=== PATIENT | female | born 1955 | race Caucasian/White ===

== ENCOUNTER 2019-09-11 15:42 | Inpatient (IN) | payer BC ==
[~2019-09-11] VITALS: Ht 152.4 cm; Wt 77.6 kg
[2019-09-11 15:42] VITALS: BP_SYST 95
--- NOTE | 2019-09-11 15:42 | NUR ---
BROUGHT IN BY [facility], PLACED IN BED #1 AND TRIAGED. REPORT GIVEN TO YAMILE
--- NOTE | 2019-09-11 15:45 | NUR ---
MD SALOMON AT BEDSIDE ASSESSING PT.
[2019-09-11] MEDS ORDERED: NACL 0.9% 1,000 ML IV ONE ×2 (15:47→23:00)
--- NOTE | 2019-09-11 16:00 | NUR ---
RN ASSESSING PT. PT HAD HYPOTENSIVE EPISODE. PT BROUGHT IN BY EMS. PT IS ALERT ORIENTED AND NOW STABLE. B/P UP
[2019-09-11 16:25] LABS: BASOPHILS # (AUTO) 0.1 K/uL (0.0-0.2); BASOPHILS % (AUTO) 0.4 % (0.0-2.0); EOSINOPHILS # (AUTO) 0.2 K/uL (0.0-0.4); EOSINOPHILS % (AUTO) 1.3 % (0.0-4.0); HEMATOCRIT 28.9 % (36-48); HEMOGLOBIN 9.1 g/dL (12.0-16.0); LYMPHOCYTES # (AUTO) 2.3 K/uL (1.0-5.5); LYMPHOCYTES % (AUTO) 13.1 % (20.5-51.5); MEAN CORPUSCULAR HEMOGLOBIN 29 pg (27-31); MEAN CORPUSCULAR HGB CONC 32 % (32-36); MEAN CORPUSCULAR VOLUME 91 fL (79.0-98.0); MONOCYTES # (AUTO) 1.6 K/uL (0.0-1.0); MONOCYTES % (AUTO) 9.3 % (1.7-9.3); NEUTROPHILS # (AUTO) 13.4 K/uL (1.8-7.7); NEUTROPHILS % (AUTO) 75.9 % (40.0-70.0); PLATELET COUNT (AUTO) 482 K/uL (130-430); RED BLOOD CELL COUNT(AUTO) 3.18 MIL/uL (4.2-6.2); RED CELL DISTRIBUTION WIDTH 15.5 % (9.0-15.0); WHITE BLOOD COUNT (AUTO) 17.6 K/uL (4.8-10.8)
[2019-09-11 16:35] LABS: CALCIUM 7.4 mg/dL (8.4-11.0); CREATININE 5.51 mg/dL (0.55-1.30); POTASSIUM 4.3 mmol/L (3.5-5.1)
--- NOTE | 2019-09-11 16:50 | NUR ---
FLU SWAB SENT TO LAB
[2019-09-11 17:00] LABS: ALBUMIN 3.2 g/dL (3.4-4.8); TOTAL BILIRUBIN 0.3 mg/dL (0.0-1.0)
[2019-09-11 17:24] LABS: CKMB RELATIVE INDEX 1.9 (0.0-2.9); CREATINE KINASE MB 18.9 ng/mL (0-3.6)
--- NOTE | 2019-09-11 17:42 | NUR ---
PT CONTINUES IN IV FLUIDS 1ST LITER.
[2019-09-11] MEDS ORDERED: cefTRIAXone 1 GM IVPB PREMIX 50 ML IV ONE (18:30)
--- NOTE | 2019-09-11 18:34 | NUR ---
ORDERS RECEIVED BY MD CAZARES. ADMIT TO TELE
[2019-09-11] MEDS ORDERED: LISI1TAB32 PO (18:54)
[2019-09-11] MEDS ORDERED: CHOL200041 PO (18:54)
[2019-09-11] MEDS ORDERED: SIMV20TA2 PO (18:54)
[2019-09-11] MEDS ORDERED: LORA-259 PO (18:54)
[2019-09-11 19:00] LABS: BLOOD, URINE NEGATIVE (NEGATIVE); CLARITY/URINE SL CLOUDY (CLEAR); COLOR,URINE YELLOW (YELLOW); GLUCOSE,URINE NEGATIVE (NEGATIVE); KETONES,URINE NEGATIVE (NEGATIVE); LEUKOCYTE ESTERASE ,URINE TRACE (NEGATIVE); NITRITE, URINE NEGATIVE (NEGATIVE); PROTEIN URINE TRACE (NEGATIVE); UROBILINOGEN,URINE 0.2 (0.2-1.0)
[2019-09-11 19:24] LABS: BILIRUBIN,URINE NEGATIVE (NEGATIVE)
--- NOTE | 2019-09-11 19:30 | NUR ---
Received report from Leland FRANKS to endorse all care.
[2019-09-11 19:33] LABS: BACTERIA,URINE FEW /HPF (None Seen); RBC,URINE NONE SEEN /HPF (0-3)
[2019-09-11 19:34] LABS: MUCUS,URINE None Seen /LPF (None Seen)
--- NOTE | 2019-09-11 20:40 | NUR ---
Transfer to Telemetry room 100A via ACLS protocol. Licensed nurse present. IV present no signs or symptoms of infiltration.
--- NOTE | 2019-09-11 21:01 | NUR ---
ADMISSION NOTE Received patient from ER via gurney. Patient admitted with diagnosis of Hypotension. Patient is awake, alert, oriented X 4. Patient oriented to hospital room, call light, toileting, pain management and safety-teach back done. Patient informed that TINY Luna will be primary nurse and that their room number is 100B. Personal belongings checked and Belongings List documented. Call light within reach.
[2019-09-11 21:04] VITALS: BP_SYST 97
[2019-09-11] MEDS: NACL 0.9% 1,000 ML IV SCH (22:51)
[2019-09-11] MEDS ORDERED: ALBUTEROL SULFATE 0.083% 2.5 MG/3 ML VIAL.NEB INH PRN (23:00)
--- NOTE | 2019-09-11 23:06 | NUR ---
received pt in bed v/s and assessment done ,iv rt a/c infusing well ,pt family at bedside,pt requesting to sleep at this time.
[2019-09-12] VITALS (17 sets, daily range): BP systolic 88–141
[2019-09-12] MEDS: PIPERACILLIN/TAZO 2.25G/DEX-IS 50 ML IV SCH ×3 (06:56→21:37)
[2019-09-12 06:57] LABS: BASOPHILS % (AUTO) 0.3 % (0.0-2.0); EOSINOPHILS # (AUTO) 0.1 K/uL (0.0-0.4); EOSINOPHILS % (AUTO) 0.5 % (0.0-4.0); HEMOGLOBIN 8.8 g/dL (12.0-16.0); LYMPHOCYTES # (AUTO) 1.9 K/uL (1.0-5.5); LYMPHOCYTES % (AUTO) 12.1 % (20.5-51.5); MEAN CORPUSCULAR HEMOGLOBIN 29 pg (27-31); MEAN CORPUSCULAR HGB CONC 31 % (32-36); MEAN CORPUSCULAR VOLUME 91 fL (79.0-98.0); MONOCYTES # (AUTO) 1.2 K/uL (0.0-1.0); MONOCYTES % (AUTO) 7.4 % (1.7-9.3); NEUTROPHILS # (AUTO) 12.8 K/uL (1.8-7.7); NEUTROPHILS % (AUTO) 79.7 % (40.0-70.0); PLATELET COUNT (AUTO) 473 K/uL (130-430); RED BLOOD CELL COUNT(AUTO) 3.08 MIL/uL (4.2-6.2); RED CELL DISTRIBUTION WIDTH 15.8 % (9.0-15.0); WHITE BLOOD COUNT (AUTO) 16.1 K/uL (4.8-10.8)
[2019-09-12] MEDS ORDERED: PIPERACILLIN/TAZOBACTAM 2.25 GM VIAL IV ONE (07:25)
[2019-09-12 07:33] LABS: ALANINE AMINOTRANSFERASE 39 U/L (12-78); ANION GAP 17 (5-15); ASPARTATE AMINOTRANSFERASE 47 U/L (10-37); CALCIUM 7.1 mg/dL (8.4-11.0); CHLORIDE 98 mmol/L (98-107); CREATININE 5.11 mg/dL (0.55-1.30); GLUCOSE 117 mg/dL (70-99); POTASSIUM 4.9 mmol/L (3.5-5.1); SODIUM SERUM 132 mmol/L (136-145); TOTAL BILIRUBIN 0.3 mg/dL (0.0-1.0); UREA NITROGEN, BLOOD 82 mg/dL (8-21)
[2019-09-12 07:37] LABS: GFR AFRICAN AMERICAN 11 mL/min (>90)
[2019-09-12 07:56] LABS: CKMB RELATIVE INDEX 1.2 (0.0-2.9); CREATINE KINASE MB 14.5 ng/mL (0-3.6)
--- NOTE | 2019-09-12 08:00 | NUR ---
Patient is A/Ox4, but appears apathetic. BP 94/60. Patient states she is not hungry and does not want to eat at this time despite encouragement from RN.
[2019-09-12 08:22] LABS: CHOLESTEROL 155 mg/dL (<200); HDL CHOLESTEROL 46 mg/dL (>55); LDL CHOLESTEROL 79 mg/dL (<100); TRIGLYCERIDES 148 mg/dL (30-150)
[2019-09-12] MEDS: NACL 0.9% 1,000 ML IV SCH (08:23)
[2019-09-12] MEDS ORDERED: NEPHROVITE, (FOLIC ACID/VITAMIN B COMP W-C 1 TAB) PO ONE (09:00)
[2019-09-12] MEDS ORDERED: ONDANSETRON HCL 4 MG/2 ML VIAL IVP PRN (09:00)
[2019-09-12] MEDS ORDERED: SIMVASTATIN 20 MG TABLET PO SCH (09:00)
--- NOTE | 2019-09-12 09:20 | NUR ---
Receiving renal US at this time. No signs of distress noted.
--- NOTE | 2019-09-12 10:30 | NUR ---
PATIENT APPEARS TO BE LESS RESPONSIVE, AND BP AT 88/56. DR. EARL IS NOTIFIED.
--- NOTE | 2019-09-12 10:30 | NUR ---
BLADDER SCAN DETECTED ~700ML OF URINE BUT PATIENT STATES SHE HAS NO URGE TO VOID. WILL INFORM DR. EARL
[2019-09-12 10:41] LABS: TOTAL IRON BIND. CAPACITY 451 ug/dL (250-450)
[2019-09-12] MEDS ORDERED: NACL 0.9% 1,000 ML IV ONE (10:45)
[2019-09-12] MEDS ORDERED: PANTOPRAZOLE SODIUM 40 MG/VIAL (PROTONIX) IVP ONE (10:45)
--- NOTE | 2019-09-12 10:51 | NUR ---
REASON FOR CONSULTATION:CRITICAL CARE WAS CONSULT CALLED?Y PERSON WHO WAS NOTIFIED:[facility] CONSULTING PHYSICIAN:[facility] BOTTLE DEALER SPECIALTY:PULMONARY BOTTLE DEALER PHONE NUMBER:[phone] REQUESTING PHYSICIAN:MILES NAZARIO
--- NOTE | 2019-09-12 12:44 | NUR ---
PAGED PAGED [facility] AT [phone] SPOKE WITH ANGELA.
[2019-09-12] MEDS: SODIUM BICARBONATE 8.4% JECT 100 MEQ in 0.45% NACL 1,000 ML IV SCH ×2 (13:21→23:45)
--- NOTE | 2019-09-12 14:20 | NUR ---
PT TRANSFERRED Report given to Gillian at ICU. Patient is transferred to ICU via monitor. Tolerated transfer without distress.
--- NOTE | 2019-09-12 14:45 | NUR ---
Patient received with report. Arrived at 1429 on unit from telemetry via wheelchair with assistance from second nurse. Patient placed on tele and 02 monitor. Greeted and assessed patient, denies pain. Breathing unlabored, in no acute distress and awake. Hendricks catheter patent. Patient placed in bed with side rails x 3 up, call light with in reach.
--- NOTE | 2019-09-12 15:00 | NUR ---
MD Harmon at bedside with and son.
--- NOTE | 2019-09-12 17:02 | NUR ---
Requested RT to place bipap PRN order per MD Nichole due to decrease respirations when patient falls asleep.
[2019-09-12] MEDS: ACETAMINOPHEN 325 MG TABLET PO PRN ×2 (17:08→22:05)
--- NOTE | 2019-09-12 19:21 | NUR ---
Gave report and endorsed patient to NOC shift. Patient in no acute distress. Denies pain. Patient in bed with family eating dinner. Side rails up x 3. Call light with in reach.
--- NOTE | 2019-09-12 19:40 | NUR ---
Initial note Received patient after report from dayshift nurse. Patient awake and interacting with family at bedside. Occasional drowsiness noted as patient stated "I feel very tired". IV site to L hand 22g infusing maintenance fluids at 120 cc/h which includes Bicarb. Hendricks catheter in place and draining to gravity. Noted that when patient fall asleep RR decreases to under 10 RPM. O2 2L NC in place with orders to place patient in BIPAP for hours of sleep. Patient's gown changed and made comfortable in bed with instruction to remain in bed due to risk of falls due to episodes of disorientation. will continue to monitor patient closely for desaturation and low RR. Patient requires frequent reminders to keep nasal canula on.
--- NOTE | 2019-09-12 21:22 | NUR ---
RT NOTES 2121 PUT PT ON BIPAP PER BP SETTINGS. (BP 12/5 BUR 14, 21%) M MASK. SAT 98%, 108 HR, RR 14. 2145 RN CANDACE CALLED RT STATING PT WANTS TO REM0VE BIPAP, PT FEELS UNCOMFORTABLE. RT EXPLAIN TO PATIENT WHY SHE NEEDS TO USE THE BIPAP. AND/OR GIVE IT A TRY ONE MORE TIME. PT STILL REFUSED. BIPAP REMOVED. SWITCHED PT ON 2LPM NASAL CANNULA. SAT 98%. TOLD RN TO CLOSELY MONITOR PT DUE TO BRADYPNEA/APNEA.
[2019-09-13] VITALS (16 sets, daily range): BP systolic 104–148
--- NOTE | 2019-09-13 02:33 | NUR ---
Continues to require reminders to keep nasal canula on. Patient's RR decreases occasionally due to apnea periods. O2 saturations fluctuate from 88-98 %. easy to arouse when needed and occasional episodes or forgetfulness noted. will continue to monitor as per unit protocol.
[2019-09-13 05:39] LABS: BASOPHILS # (AUTO) 0.1 K/uL (0.0-0.2); BASOPHILS % (AUTO) 0.6 % (0.0-2.0); EOSINOPHILS % (AUTO) 0.2 % (0.0-4.0); HEMATOCRIT 26.9 % (36-48); HEMOGLOBIN 8.8 g/dL (12.0-16.0); LYMPHOCYTES # (AUTO) 0.5 K/uL (1.0-5.5); LYMPHOCYTES % (AUTO) 5.7 % (20.5-51.5); MEAN CORPUSCULAR HEMOGLOBIN 29 pg (27-31); MEAN CORPUSCULAR HGB CONC 33 % (32-36); MEAN CORPUSCULAR VOLUME 89 fL (79.0-98.0); MONOCYTES # (AUTO) 0.2 K/uL (0.0-1.0); MONOCYTES % (AUTO) 2.2 % (1.7-9.3); NEUTROPHILS % (AUTO) 91.3 % (40.0-70.0); PLATELET COUNT (AUTO) 417 K/uL (130-430); RED BLOOD CELL COUNT(AUTO) 3.01 MIL/uL (4.2-6.2); RED CELL DISTRIBUTION WIDTH 15.6 % (9.0-15.0); WHITE BLOOD COUNT (AUTO) 8.8 K/uL (4.8-10.8)
[2019-09-13 06:00] LABS: ALBUMIN 2.7 g/dL (3.4-4.8); CREATININE 0.99 mg/dL (0.55-1.30); POTASSIUM 4.3 mmol/L (3.5-5.1); TOTAL BILIRUBIN 0.3 mg/dL (0.0-1.0)
[2019-09-13] MEDS: PIPERACILLIN/TAZO 2.25G/DEX-IS 50 ML IV SCH ×3 (06:19→22:17)
[2019-09-13 06:26] LABS: CKMB RELATIVE INDEX 0.7 (0.0-2.9); CREATINE KINASE MB 4.8 ng/mL (0-3.6)
--- NOTE | 2019-09-13 07:17 | NUR ---
RECEIVED NURSING REPORT FROM PIGMENT PUMPER ENEDINA Conway
--- NOTE | 2019-09-13 08:25 | NUR ---
PATIENT HAD SEVERE WATER DIARRHEA 6 TIMES, SINCE VALIDATION ENGINEER TO NOW, AT 0825 A.M, DR. EUCEDA SEE PATIENT WAS AWARE IT
[2019-09-13] MEDS ORDERED: NEPHROVITE, (FOLIC ACID/VITAMIN B COMP W-C 1 TAB) PO SCH (09:00)
[2019-09-13] MEDS: NEPHROVITE, (FOLIC ACID/VITAMIN B COMP W-C 1 TAB) PO SCH (09:08)
[2019-09-13] MEDS: PANTOPRAZOLE SODIUM 40 MG/VIAL (PROTONIX) IVP SCH (09:08)
[2019-09-13] MEDS: SODIUM BICARBONATE 8.4% JECT 100 MEQ in 0.45% NACL 1,000 ML IV SCH (09:08)
[2019-09-13] MEDS ORDERED: ASPIRIN 325 MG TABLET PO PRN (09:45)
--- NOTE | 2019-09-13 09:50 | NUR ---
DR VELIZ SEE PATIENT
[2019-09-13] MEDS: DIPHENOXYLATE HCL/ATROP SULF 2.5 MG TAB PO PRN ×2 (09:54→17:57)
--- NOTE | 2019-09-13 10:57 | NUR ---
Dietitian Recommendations *Recommend Banatrol TID. *Continue Mechanical soft diet. *Recommend: small frequent meals, NO spicy. *Consider adding ONS if PO intake does not improve by ext RD visit. Please see Nutritional Assessment for details. CLARITZA, RD
--- NOTE | 2019-09-13 11:24 | NUR ---
DC PLANNING CHART REVIEWED, SPOKE TO SPOUSE TO GET INFORMATION, PATIENT LIVES WITH FAMILY- SPOUSE AND SON AT SINGLE LEVEL HOUSE. ADLS INDEPENT, DME- NONE. POSSIBLE TO DOWNGRADE TO M/S TELE ONCE CONDITION STABLE. DCP: HOME WITH FAMILY TRANSPORTATION- VIA SPOUSE CAR. CONTINUE FOLLOW UP WITH DCP NEEDED. NIMCO RN CM
[2019-09-13] MEDS: 0.45% NACL 1,000 ML IV SCH ×2 (11:40→21:40)
--- NOTE | 2019-09-13 12:07 | NUR ---
DR. EUCEDA ORDERED DOWN GRADE TO TELE STATUS
--- NOTE | 2019-09-13 13:00 | NUR ---
patient transferred from ICU received report, patient is alert and oriented, no signs of distress at this time, on 2L nasal cannula, rivera secured, educated manager documentation light system and plan of care, patient verbalized understanding, no needs addressed at this time, brake armed, bed in lowest position, bed alarm on, three side rails up, call light within reach.
--- NOTE | 2019-09-13 13:00 | NUR ---
GIVE COMPLETE NURSING REPORT TO MED-SURG ELISEO Conway AND TRANSFER PATIENT TO TELE BED 110 A, WAS NOTIFY PATIENT,S ENEIDA AWARE
--- NOTE | 2019-09-13 15:20 | NUR ---
assisted patient to bathroom patient able to ambulate to bathroom with assistance, spoke to about bringing other medications she takes at home, no signs of distress at this time, fall/safety precautions in place.
--- NOTE | 2019-09-13 17:08 | NUR ---
MD MATILDA SORIA CALLED AT SPOKE WITH DR.KANGARLU NIGEL SAND TEMPERER.
--- NOTE | 2019-09-13 18:47 | NUR ---
closing note patient is resting in bed,no signs of distress at this time, took off 2L nasal cannula at this time patient has O2 sat of 97%, rivera secured, no needs addressed at this time, brake armed, bed in lowest position, bed alarm on, three side rails up, call light within reach, IVF running and patient tolerating well at this time, will endorse care to hourly shift manager nurse to continue with care, patient calls for assistance to the bathroom, will endorse to page director executive communications MD again for pain medication, patient was able to show me that she has a prescription for tylenol with codeine, will put in her home med rec for hourly shift manager nurse to see.
[2019-09-13] MEDS ORDERED: TYC3 PO (18:55)
--- NOTE | 2019-09-13 19:25 | NUR ---
CHANGE OF SHIFT: pt. awake, watching tv when received. denies any shortness of breath, O2 @ 2l/nc. HOB elevated. IVF infuisng via rt. antecubital, will assess pater, call light within reach.
--- NOTE | 2019-09-13 20:30 | NUR ---
NOTES: pt. eating crackers, watching tv. VS checked. no due medication except for IV antibiotic, on air sampling and monitoring and shows sinus rhythm. maintain bed rest. pt. with rivera cath to osd with yellow urine output. IV 1/2 NS @ 100 cc/hr via rt. ac, another IV site on left hand, IV lock. pt. able to reposition self. bed alarm on. call light at bedside.
[2019-09-13] MEDS ORDERED: PIPERACILLIN/TAZOBACTAM 2.25 GM VIAL IV ONE (22:08)
[2019-09-13] MEDS: ACETAMINOPHEN 325 MG TABLET PO PRN (23:19)
--- NOTE | 2019-09-13 23:22 | NUR ---
NOTES: medicated with Tylenol po for c/o headache. Rt at bedside and refused BIPAP tonight, kept O2 @ 2 l.nc., denies any shortness of breath nor acute distress. HOB on high fowlers position.
[2019-09-14 01:20] VITALS: BP_SYST 113
--- NOTE | 2019-09-14 01:33 | NUR ---
NOTES: pt. was sleeping, awakened with IV alarm, will try to go back to sleep.
--- NOTE | 2019-09-14 03:27 | NUR ---
NOTES: condition observed. been sleeping. IVF patent. call light within reach.
--- NOTE | 2019-09-14 05:30 | NUR ---
NOTES: recyclable products sorter here for am lab draw. awakened and repositioned.
[2019-09-14] MEDS: PIPERACILLIN/TAZO 2.25G/DEX-IS 50 ML IV SCH (05:48)
[2019-09-14] MEDS: 0.45% NACL 1,000 ML IV SCH (06:15)
--- NOTE | 2019-09-14 06:47 | NUR ---
CLOSING NOTES; pt. went back to sleep. IVF continuous, IV antibiotic infusing. rivera intact. O2 on, imnnstructed on deep breathing, no sob. for further care and assist. no diarrhea all night. call light within reach.
[2019-09-14 07:01] LABS: BASOPHILS # (AUTO) 0.1 K/uL (0.0-0.2); BASOPHILS % (AUTO) 1.4 % (0.0-2.0); EOSINOPHILS # (AUTO) 0.4 K/uL (0.0-0.4); EOSINOPHILS % (AUTO) 4.8 % (0.0-4.0); HEMATOCRIT 25.1 % (36-48); LYMPHOCYTES # (AUTO) 1.8 K/uL (1.0-5.5); LYMPHOCYTES % (AUTO) 21.4 % (20.5-51.5); MEAN CORPUSCULAR HEMOGLOBIN 29 pg (27-31); MEAN CORPUSCULAR HGB CONC 32 % (32-36); MEAN CORPUSCULAR VOLUME 90 fL (79.0-98.0); MONOCYTES # (AUTO) 0.7 K/uL (0.0-1.0); MONOCYTES % (AUTO) 9.1 % (1.7-9.3); NEUTROPHILS # (AUTO) 5.2 K/uL (1.8-7.7); NEUTROPHILS % (AUTO) 63.3 % (40.0-70.0); PLATELET COUNT (AUTO) 378 K/uL (130-430); RED BLOOD CELL COUNT(AUTO) 2.81 MIL/uL (4.2-6.2); RED CELL DISTRIBUTION WIDTH 15.8 % (9.0-15.0); WHITE BLOOD COUNT (AUTO) 8.2 K/uL (4.8-10.8)
[2019-09-14 07:23] LABS: ALBUMIN 2.4 g/dL (3.4-4.8); CALCIUM 7.9 mg/dL (8.4-11.0); CREATININE 0.64 mg/dL (0.55-1.30); POTASSIUM 3.3 mmol/L (3.5-5.1); TOTAL BILIRUBIN 0.3 mg/dL (0.0-1.0)
--- NOTE | 2019-09-14 07:45 | NUR ---
Opening note patient resting in bed, a/ox4, denies pain, assessment complete, IV lines are patent and infusing well, no s/s of infiltration, Hendricks Catheter in place draining to gravity, educated the patient on plan of care and call light system, she verbalized understanding, bed in lowest position, two side rails up, bed alarm on, call light placed within reach, fall and aspiration precautions in place.
[2019-09-14 08:11] VITALS: BP_SYST 131
[2019-09-14] MEDS: NEPHROVITE, (FOLIC ACID/VITAMIN B COMP W-C 1 TAB) PO SCH (08:21)
[2019-09-14] MEDS: PANTOPRAZOLE SODIUM 40 MG/VIAL (PROTONIX) IVP SCH (08:21)
[2019-09-14] MEDS: ACETAMINOPHEN 325 MG TABLET PO PRN (08:30)
--- NOTE | 2019-09-14 08:30 | NUR ---
Medication patient resting in bed, no distress, on 2L via nasal cannula, educated the patient on scheduled and PRN medication uses and potential side effects, she verbalized understanding and tolerated well, IV line is patent and infusing well, no other needs at this time, continuing to monitor, bed in lowest position, two side rails up, call light within reach, fall and aspiration precautions in place.
--- NOTE | 2019-09-14 10:30 | NUR ---
RN/Rounds D/C Hendricks and Tele discontinued Hendricks Catheter, patient tolerated well, catheter tip intact, discontinued Telemetry per MD orders. Patient ambulated to restroom with assist, unable to void yet, patient brushed her own teeth and brushed her hair, patient sitting in chair at the bedside, continuing to monitor, bed in lowest position, call light placed within reach, fall and aspiration precautions in place.
[2019-09-14] MEDS: DIPHENOXYLATE HCL/ATROP SULF 2.5 MG TAB PO PRN (11:44)
--- NOTE | 2019-09-14 11:45 | NUR ---
Medication/Rounds patient resting in bed, awake, denies pain, stated that she was able to void and also complained of one episode of diarrhea, provided with Lomotil per MD orders, patient tolerated well, vital signs taken, continuing to monitor, bed in lowest position, two side rails up, call light within reach, fall and aspiration precautions in place.
--- NOTE | 2019-09-14 12:20 | NUR ---
Paged Dr. Ragland for discharge orders - noted discharge summary by MD - but not orders received - patient anxious for discharge home.
[2019-09-14 12:46] VITALS: BP_SYST 134
--- NOTE | 2019-09-14 12:51 | NUR ---
Second page for Dr. Ragland for orders.
[2019-09-14 12:57] VITALS: BP_SYST 134
--- NOTE | 2019-09-14 13:00 | NUR ---
Dr. Johnson rounds cleared patient for discharge home today.
--- NOTE | 2019-09-14 13:30 | NUR ---
D/C Patient Patient given medication reconciliation form and D/C instructions. Exit Care provided. Patient verbalized understanding. MD discussed with patient the results and treatment provided. Ambulatory with steady gait for discharge to home. Patient in stable condition, ID band removed. IV catheters removed, intact and dressing applied, no active bleeding. med rec of home medications, stop lisinopril. Patient educated on pain management. All belongings sent with patient.
== END 2019-09-14 13:32 | disposition home or self-care (01) | DRG 314 ==
LOC: SED 15:42 → STU 18:54 → SIC 09-12 14:27 → STU 09-13 13:01
PROVIDERS: ADMIT Internal Medicine; ATTEND Internal Medicine Hospice and Palliative Medicine
PROC: 5A09357 Assistance with Respiratory Ventilation, Less than 24 Consecutive Hours, Continuous Positive Airway Pressure (ICD-10-PCS; principal; 2019-09-12)
DX: I95.9 Hypotension, unspecified (principal); R57.1 Hypovolemic shock; N17.0 Acute kidney failure with tubular necrosis; I10 Essential (primary) hypertension; N18.9 Chronic kidney disease, unspecified; D64.9 Anemia, unspecified; K52.9 Noninfective gastroenteritis and colitis, unspecified; E78.5 Hyperlipidemia, unspecified; R06.81 Apnea, not elsewhere classified; J00 Acute nasopharyngitis [common cold]; Z79.899 Other long term (current) drug therapy; Z88.8 Allergy status to other drugs, medicaments and biological substances; Z88.2 Allergy status to sulfonamides; Z98.84 Bariatric surgery status; Z80.1 Family history of malignant neoplasm of trachea, bronchus and lung; Z82.49 Family history of ischemic heart disease and other diseases of the circulatory system
CPT/HCPCS: 36415; 36600; 71045; 76770; 80053; 80061; 81000-TC; 82550-TC; 82553-TC; 82803-TC; 83540-TC; 83550-TC; 83605; 83690-TC; 83970; 84100-TC; 84484; 85025; 86710; 87040-TC; 87081; 93005; 93306; 93880; 94660; 94760; 96365; 99285; A5061; C9113; G0378; J0696; J2543; J7030; J7060